=== PATIENT | male | born 1955 | race Caucasian/White ===

== ENCOUNTER 2017-07-25 17:04 | Emergency (ER) | payer SELFPAY | END 2017-07-25 18:30 | disposition home or self-care (01) | LOC: E/R 18:30 | DX: J20.9 Acute bronchitis, unspecified (principal); R11.10 Vomiting, unspecified; R19.7 Diarrhea, unspecified | CPT/HCPCS: 99282 ==

== ENCOUNTER 2018-01-20 14:29 | Inpatient (IN) | payer OTHER ==
[2018-01-20 15:34] LABS: ADD MAN DIFF? NO
[2018-01-20 15:40] LABS: BASOPHILS % 0.5 % (0.0-2.0); EOSINOPHILS # 0.1 10^3/ul (0.0-0.5); HEMATOCRIT 42.4 % (42.0-52.0); HEMOGLOBIN 14.3 g/dl (14.0-18.0); LYMPHOCYTES # 1.2 10^3/ul (0.8-2.9); MEAN CORPUSCULAR HEMOGLOBIN 29.4 pg (29.0-33.0); MEAN CORPUSCULAR HGB CONC 33.7 g/dl (32.0-37.0); MEAN CORPUSCULAR VOLUME 87.1 fl (82.0-101.0); MONOCYTE # 0.7 10^3/ul (0.3-0.9); MONOCYTES % 11.1 % (0.0-11.0); NEUTROPHIL # 4.1 10^3/ul (1.6-7.5); NEUTROPHILS % 68.1 % (39.0-77.0); PLATELET COUNT 144 10^3/UL (140-415); RED BLOOD COUNT 4.87 10^6/ul (4.70-6.10); RED CELL DISTRIBUTION WIDTH 12.4 % (11.5-14.5)
[2018-01-20] MEDS: SODIUM CHLORIDE 0.9% 1L BAG IV* (15:46)
[2018-01-20 15:52] LABS: UR MUCUS FEW /HPF (NONE SEEN); UR RBC 2 /HPF (0-5); UR WBC 2 /HPF (0-5)
[2018-01-20 15:56] LABS: ADD UMIC YES; UR ASCORBIC ACID 40 mg/dL (NEGATIVE); UR BILIRUBIN (Dip) NEGATIVE (NEGATIVE); UR BLOOD (Dip) NEGATIVE (NEGATIVE); UR CLARITY CLEAR (CLEAR); UR COLOR YELLOW (YELLOW); UR GLUCOSE (Dip) 3+ mg/dL (NEGATIVE); UR KETONES (Dip) NEGATIVE (NEGATIVE); UR LEUKOCYTE ESTERASE (Dip) NEGATIVE Leu/ul (NEGATIVE); UR NITRITE (Dip) NEGATIVE (NEGATIVE); UR SPECIFIC GRAVITY (Dip) 1.026 (1.003-1.030); UR TOTAL PROTEIN (Dip) 1+ mg/dl (NEGATIVE); UR UROBILINOGEN (Dip) 2+ mg/dL (NEGATIVE)
[2018-01-20 16:01] LABS: ALANINE AMINOTRANSFERASE 23 IU/L (13-69); ALBUMIN 4.1 g/dl (3.3-4.9); ALKALINE PHOSPHATASE 91 IU/L (42-121); ANION GAP 16 (8-16); ASPARTATE AMINO TRANSFERASE 24 IU/L (15-46); BILIRUBIN,INDIRECT 0.6 mg/dl (0-1.1); BILIRUBIN,TOTAL 0.6 mg/dl (0.2-1.3); BLOOD UREA NITROGEN 14 mg/dl (7-20); C-REACTIVE PROTEIN 3.5 mg/dl (0.0-0.9); CALCIUM 9.1 mg/dl (8.4-10.2); CARBON DIOXIDE 26 mmol/L (21-31); CHLORIDE 103 mmol/L (97-110); CREATININE 0.61 mg/dl (0.61-1.24); GLUCOSE 256 mg/dl (70-220); POTASSIUM 4.1 mmol/L (3.5-5.1); SODIUM 141 mmol/L (135-144); TOTAL PROTEIN 7.8 g/dl (6.1-8.1)
[2018-01-20 16:02] LABS: INR 1.05; PARTIAL THROMBOPLASTIN TIME 33.4 Sec (25.0-35.0); PROTIME 13.8 Sec (11.9-14.9); PT RATIO 1.1
[2018-01-20 16:07] LABS: LACTIC ACID 2.3 mmol/L (0.5-2.0)
[2018-01-20 16:12] LABS: TROPONIN-I < 0.012 ng/ml (0.000-0.120)
[2018-01-20 17:34] LABS: LACTIC ACID 1.2 mmol/L (0.5-2.0)
[2018-01-20 17:39] LABS: ERYTHROCYTE SEDIMENTATION RATE 20 mm/Hr (0-20)
[2018-01-20] MEDS: CEFEPIME 1GM/50 ML (PMX) 50 ML IVPB (17:54)
[2018-01-20] MEDS: VANCOMYCIN 1 GM (PMX) 250 ML IVPB (18:23)
[2018-01-20] MEDS ORDERED: ACETAMINOPHEN 325 MG TAB PO (18:30)
[2018-01-20] MEDS ORDERED: ONDANSETRON 4 MG INJ IV (18:30)
[2018-01-20] MEDS ORDERED: DEXTROSE 50% 50 ML SYRINGE IV ×2 (19:00)
[2018-01-20] MEDS ORDERED: GLUCAGON 1 MG INJ IM (19:00)
[2018-01-20] MEDS ORDERED: GLUCOSE GEL 15 GRAM TUBE PO ×2 (19:00)
[2018-01-20] MEDS ORDERED: NACL 0.9% 3 ML SYG IV (19:00)
[2018-01-20] MEDS ORDERED: GLUCOSE GEL 15 GRAM TUBE BUCCAL (19:00)
[2018-01-20 20:37] LABS: LACTIC ACID 0.9 mmol/L (0.5-2.0)
[2018-01-20] MEDS: TAMSULOSIN (SR) 0.4 MG CAP PO (21:55)
[2018-01-20] MEDS: LISINOPRIL 5 MG TAB PO (21:55)
[2018-01-20] MEDS: INSULIN GLARGINE [LANtus] 3 ML PEN SC (22:08)
[2018-01-20] MEDS: INSULIN ASPART [NOVOLOG] 3 ML PEN SC (22:09)
[2018-01-21] MEDS ORDERED: PIPER-TAZO 3.375 GM IV (PMX) 100 ML IVPB (02:00)
[2018-01-21 04:59] LABS: ADD MAN DIFF? NO
[2018-01-21 05:02] LABS: WHITE BLOOD COUNT 5.5 10^3/ul (4.8-10.8)
[2018-01-21 05:02] LABS: BASOPHILS % 0.2 % (0.0-2.0); EOSINOPHILS # 0.1 10^3/ul (0.0-0.5); HEMATOCRIT 36.7 % (42.0-52.0); HEMOGLOBIN 12.3 g/dl (14.0-18.0); LYMPHOCYTES # 1.4 10^3/ul (0.8-2.9); LYMPHOCYTES % 25.9 % (15.0-51.0); MEAN CORPUSCULAR HEMOGLOBIN 29.1 pg (29.0-33.0); MEAN CORPUSCULAR HGB CONC 33.5 g/dl (32.0-37.0); MEAN CORPUSCULAR VOLUME 86.8 fl (82.0-101.0); MONOCYTE # 0.8 10^3/ul (0.3-0.9); MONOCYTES % 13.7 % (0.0-11.0); NEUTROPHIL # 3.2 10^3/ul (1.6-7.5); NEUTROPHILS % 57.8 % (39.0-77.0); PLATELET COUNT 133 10^3/UL (140-415); RED BLOOD COUNT 4.23 10^6/ul (4.70-6.10); RED CELL DISTRIBUTION WIDTH 12.6 % (11.5-14.5)
[2018-01-21 05:34] LABS: ALANINE AMINOTRANSFERASE 27 IU/L (13-69); ALBUMIN 3.3 g/dl (3.3-4.9); ALBUMIN/GLOBULIN RATIO 1.03; ALKALINE PHOSPHATASE 72 IU/L (42-121); ANION GAP 13 (8-16); ASPARTATE AMINO TRANSFERASE 21 IU/L (15-46); BILIRUBIN,INDIRECT 0.5 mg/dl (0-1.1); BILIRUBIN,TOTAL 0.5 mg/dl (0.2-1.3); BLOOD UREA NITROGEN 12 mg/dl (7-20); CALCIUM 8.3 mg/dl (8.4-10.2); CARBON DIOXIDE 23 mmol/L (21-31); CHLORIDE 109 mmol/L (97-110); CREATININE 0.55 mg/dl (0.61-1.24); GLUCOSE 186 mg/dl (70-220); POTASSIUM 3.6 mmol/L (3.5-5.1); SODIUM 141 mmol/L (135-144); TOTAL PROTEIN 6.5 g/dl (6.1-8.1)
[2018-01-21 05:57] LABS: HEMOGLOBIN A1C 8.9 % (0-5.9)
[2018-01-21] MEDS: CEFEPIME 1GM/50 ML (PMX) 50 ML IVPB ×2 (08:02→20:49)
[2018-01-21] MEDS: INSULIN ASPART [NOVOLOG] 3 ML PEN SC ×7 (08:03→21:00)
[2018-01-21] MEDS: ENOXAPARIN 30 MG/0.3 ML SYG SC (08:04)
[2018-01-21] MEDS: LISINOPRIL 5 MG TAB PO (08:05)
[2018-01-21] MEDS: metFORMIN 500 MG TAB PO ×2 (11:58→17:11)
[2018-01-21] MEDS: HYDROCODONE/APAP (5/325) TAB PO (20:06)
[2018-01-21] MEDS: INSULIN GLARGINE [LANtus] 3 ML PEN SC (20:48)
[2018-01-21] MEDS: TAMSULOSIN (SR) 0.4 MG CAP PO (20:49)
[2018-01-21] MEDS: ATORVASTATIN 40 MG TAB PO (20:53)
[2018-01-22] MEDS: ACCU-CHEK XX (02:00)
[2018-01-22] MEDS: INSULIN ASPART [NOVOLOG] 3 ML PEN SC ×7 (08:00→21:00)
[2018-01-22] MEDS: metFORMIN 500 MG TAB PO ×2 (08:09→17:14)
[2018-01-22] MEDS: ENOXAPARIN 30 MG/0.3 ML SYG SC (08:10)
[2018-01-22] MEDS: CEFEPIME 1GM/50 ML (PMX) 50 ML IVPB ×2 (08:11→21:24)
[2018-01-22] MEDS: MUPIROCIN 2% 22 GM OINT TOP ×2 (08:11→21:25)
[2018-01-22] MEDS: LISINOPRIL 5 MG TAB PO (08:12)
[2018-01-22] MEDS: SODIUM HYPOCHLORITE (1/40) 1 APPLIC BTL IRR ×2 (08:17→21:25)
[2018-01-22] MEDS ORDERED: MUPIROCIN 2% 22 GM OINT TOP (09:00)
[2018-01-22] MEDS ORDERED: SODIUM HYPOCHLORITE (1/40) 1 APPLIC BTL IRR (09:00)
[2018-01-22] MEDS: INSULIN GLARGINE [LANtus] 3 ML PEN SC (21:23)
[2018-01-22] MEDS: TAMSULOSIN (SR) 0.4 MG CAP PO (21:24)
[2018-01-22] MEDS: ATORVASTATIN 40 MG TAB PO (21:24)
[2018-01-23] MEDS: ACCU-CHEK XX (02:00)
[2018-01-23] MEDS: INSULIN ASPART [NOVOLOG] 3 ML PEN SC ×7 (08:00→21:00)
[2018-01-23] MEDS: ENOXAPARIN 30 MG/0.3 ML SYG SC (08:00)
[2018-01-23] MEDS: metFORMIN 500 MG TAB PO ×2 (08:01→17:03)
[2018-01-23] MEDS: LISINOPRIL 5 MG TAB PO (08:02)
[2018-01-23] MEDS: CEFEPIME 1GM/50 ML (PMX) 50 ML IVPB (08:02)
[2018-01-23] MEDS: MUPIROCIN 2% 22 GM OINT TOP ×2 (08:09→20:58)
[2018-01-23] MEDS: SODIUM HYPOCHLORITE (1/40) 1 APPLIC BTL IRR ×2 (08:09→20:59)
[2018-01-23] MEDS: MEROPENEM 500MG/50 ML (PMX) 50 ML IVPB ×2 (17:02→22:40)
[2018-01-23] MEDS: INSULIN GLARGINE [LANtus] 3 ML PEN SC (20:14)
[2018-01-23] MEDS: ATORVASTATIN 40 MG TAB PO (20:58)
[2018-01-23] MEDS: TAMSULOSIN (SR) 0.4 MG CAP PO (20:58)
[2018-01-24] MEDS: ACCU-CHEK XX (02:00)
[2018-01-24] MEDS: MEROPENEM 500MG/50 ML (PMX) 50 ML IVPB (05:34)
[2018-01-24 06:29] LABS: ADD MAN DIFF? NO
[2018-01-24 06:39] LABS: BASOPHILS % 0.3 % (0.0-2.0); EOSINOPHILS # 0.2 10^3/ul (0.0-0.5); EOSINOPHILS % 3.2 % (0.0-7.0); HEMATOCRIT 40.8 % (42.0-52.0); HEMOGLOBIN 13.6 g/dl (14.0-18.0); LYMPHOCYTES % 27.3 % (15.0-51.0); MEAN CORPUSCULAR HEMOGLOBIN 29.1 pg (29.0-33.0); MEAN CORPUSCULAR HGB CONC 33.3 g/dl (32.0-37.0); MEAN CORPUSCULAR VOLUME 87.4 fl (82.0-101.0); MEAN PLATELET VOLUME 12.1 fl (7.4-10.4); MONOCYTE # 0.6 10^3/ul (0.3-0.9); MONOCYTES % 8.4 % (0.0-11.0); NEUTROPHIL # 4.4 10^3/ul (1.6-7.5); NEUTROPHILS % 60.5 % (39.0-77.0); PLATELET COUNT 182 10^3/UL (140-415); RED BLOOD COUNT 4.67 10^6/ul (4.70-6.10); RED CELL DISTRIBUTION WIDTH 12.6 % (11.5-14.5)
[2018-01-24 06:39] LABS: WHITE BLOOD COUNT 7.3 10^3/ul (4.8-10.8)
[2018-01-24 07:11] LABS: ANION GAP 16 (8-16); BLOOD UREA NITROGEN 13 mg/dl (7-20); CALCIUM 9.3 mg/dl (8.4-10.2); CARBON DIOXIDE 28 mmol/L (21-31); CHLORIDE 102 mmol/L (97-110); CREATININE 0.62 mg/dl (0.61-1.24); GLUCOSE 99 mg/dl (70-220); MAGNESIUM 1.8 mg/dl (1.7-2.5); PHOSPHORUS 4.1 mg/dl (2.5-4.9); POTASSIUM 4.4 mmol/L (3.5-5.1); SODIUM 142 mmol/L (135-144)
[2018-01-24] MEDS: INSULIN ASPART [NOVOLOG] 3 ML PEN SC ×4 (08:00→12:00)
[2018-01-24] MEDS: glipiZIDE 5 MG TAB PO (08:25)
[2018-01-24] MEDS: metFORMIN 500 MG TAB PO (08:26)
[2018-01-24] MEDS: LISINOPRIL 5 MG TAB PO (08:28)
[2018-01-24] MEDS: ENOXAPARIN 30 MG/0.3 ML SYG SC (08:29)
[2018-01-24] MEDS: MUPIROCIN 2% 22 GM OINT TOP (08:33)
[2018-01-24] MEDS: SODIUM HYPOCHLORITE (1/40) 1 APPLIC BTL IRR (08:33)
[2018-01-24] MEDS ORDERED: METOCLOPRAMIDE 5 MG TAB PO (09:30)
== END 2018-01-24 13:51 | disposition home or self-care (01) | DRG 638 ==
LOC: E/R 14:29 → PP2 21:14
PROC: 0HBMXZZ Excision of Right Foot Skin, External Approach (ICD-10-PCS; principal; 2018-01-21)
PROC: 0S9N3ZZ Drainage of Left Metatarsal-Phalangeal Joint, Percutaneous Approach (ICD-10-PCS; 2018-01-21)
DX: E11.621 Type 2 diabetes mellitus with foot ulcer (principal); L02.611 Cutaneous abscess of right foot; L97.512 Non-pressure chronic ulcer of other part of right foot with fat layer exposed; I10 Essential (primary) hypertension; N40.1 Benign prostatic hyperplasia with lower urinary tract symptoms; R39.11 Hesitancy of micturition; R39.16 Straining to void; K58.9 Irritable bowel syndrome, unspecified; Z88.0 Allergy status to penicillin
CPT/HCPCS: 36415; 71045; 73630; 73718; 80048; 80053; 81001; 82962; 83036; 83605; 83735; 84100; 84484; 85025; 85610; 85651; 85730; 86140; 87040; 87045; 87070; 87086; 93005; 93922; 96365; 96366; 96375; 97161; 99285-25

== ENCOUNTER 2018-01-29 06:32 | Inpatient (IN) | payer OTHER ==
[2018-01-29] MEDS: SOD CHLORIDE 0.9% 1,000 ML IV ×2 (07:24→14:41)
[2018-01-29] MEDS: HYDROmorphONE 1 MG/ML SYG IV ×2 (07:24→13:05)
[2018-01-29] MEDS: ONDANSETRON 4 MG INJ IV ×3 (07:24→20:25)
[2018-01-29 07:37] LABS: WHITE BLOOD COUNT 30.9 10^3/ul (4.8-10.8)
[2018-01-29 07:37] LABS: ABNORMAL IP MESSAGE 1; HEMATOCRIT 40.4 % (42.0-52.0); HEMOGLOBIN 14.3 g/dl (14.0-18.0); MEAN CORPUSCULAR HGB CONC 35.4 g/dl (32.0-37.0); MEAN CORPUSCULAR VOLUME 84.7 fl (82.0-101.0); MEAN PLATELET VOLUME 12.3 fl (7.4-10.4); PLATELET COUNT 217 10^3/UL (140-415); POSITIVE DIFF @See below; RED BLOOD COUNT 4.77 10^6/ul (4.70-6.10); RED CELL DISTRIBUTION WIDTH 12.2 % (11.5-14.5)
[2018-01-29 07:45] LABS: ADD MAN DIFF? YES
[2018-01-29 07:55] LABS: ALANINE AMINOTRANSFERASE 379 IU/L (13-69); ALBUMIN 3.7 g/dl (3.3-4.9); ALBUMIN/GLOBULIN RATIO 1.05; ALKALINE PHOSPHATASE 304 IU/L (42-121); ANION GAP 19 (8-16); ASPARTATE AMINO TRANSFERASE 726 IU/L (15-46); BILIRUBIN,INDIRECT 1.3 mg/dl (0-1.1); BILIRUBIN,TOTAL 3.1 mg/dl (0.2-1.3); BLOOD UREA NITROGEN 17 mg/dl (7-20); CALCIUM 8.7 mg/dl (8.4-10.2); CARBON DIOXIDE 21 mmol/L (21-31); CHLORIDE 93 mmol/L (97-110); CREATININE 0.61 mg/dl (0.61-1.24); GLUCOSE 348 mg/dl (70-220); LIPASE 174 U/L (23-300); POTASSIUM 4.2 mmol/L (3.5-5.1); SODIUM 129 mmol/L (135-144); TOTAL PROTEIN 7.2 g/dl (6.1-8.1)
[2018-01-29 08:28] LABS: ANISOCYTOSIS 1+ (0-0); BAND NEUTROPHILS #M 1.8 10^3/ul (0.0-0.6); BAND NEUTROPHILS % (M) 6 % (0-4); GIANT THROMBO% (M) 1 % (0-0); MONOCYTE #M 0.9 10^3/ul (0.3-0.9); MONOCYTES % (M) 3 % (0-11); PLATELET ESTIMATE NORMAL; PLATELET MORPHOLOGY COMMENT @See below; POIKILOCYTOSIS 3+ (0-0); SEG NEUT #M 28.7 10^3/ul (1.6-7.5); SEGMENTED NEUTROPHILS (M) % 91 % (39-77)
[2018-01-29] MEDS: IOHEXOL 300MG/ML 150 ML BTL (08:32)
[2018-01-29] MEDS: SOD CHLORIDE 0.9% 100 ML (08:32)
[2018-01-29 08:36] LABS: ADD UMIC YES; UR ASCORBIC ACID 40 mg/dL (NEGATIVE); UR BACTERIA FEW /HPF (NONE SEEN); UR BILIRUBIN (Dip) NEGATIVE (NEGATIVE); UR BLOOD (Dip) 1+ mg/dL (NEGATIVE); UR CLARITY CLEAR (CLEAR); UR COLOR AMBER (YELLOW); UR GLUCOSE (Dip) 3+ mg/dL (NEGATIVE); UR KETONES (Dip) 1+ mg/dL (NEGATIVE); UR LEUKOCYTE ESTERASE (Dip) NEGATIVE Leu/ul (NEGATIVE); UR NITRITE (Dip) NEGATIVE (NEGATIVE); UR RBC 1 /HPF (0-5); UR SPECIFIC GRAVITY (Dip) 1.033 (1.003-1.030); UR TOTAL PROTEIN (Dip) 1+ mg/dl (NEGATIVE); UR UROBILINOGEN (Dip) 1+ mg/dL (NEGATIVE); UR WBC 5 /HPF (0-5)
[2018-01-29] MEDS: metroNIDAZOLE 500 MG/NS (PMX) 100 ML IVPB ×3 (09:30→21:31)
[2018-01-29] MEDS: CEFTRIAXONE 1 GM/50 ML (PMX) 50 ML IVPB (10:06)
[2018-01-29] MEDS ORDERED: SOD CHLORIDE 0.9% 1,000 ML IV (10:19)
[2018-01-29] MEDS ORDERED: ACETAMINOPHEN 325 MG TAB PO (10:30)
[2018-01-29] MEDS ORDERED: ONDANSETRON 4 MG INJ IV (10:30)
[2018-01-29] MEDS ORDERED: hydrALAzine 20 MG INJ IV (13:00)
[2018-01-29] MEDS: CIPROFLOXACIN 400MG/D5W 200 ML IVPB ×2 (13:00→23:23)
[2018-01-29] MEDS ORDERED: NACL 0.9% 3 ML SYG IV (13:00)
[2018-01-29 13:26] LABS: CHOL/HDL RATIO 6.2 RATIO; HDL CHOLESTEROL 15 mg/dl (30-78); LDL CHOLESTEROL,CALCULATED 62 mg/dl; TRIGLYCERIDES 83 mg/dl (0-149)
[2018-01-29 13:26] LABS: CHOLESTEROL 94 mg/dl (100-200)
[2018-01-29 13:57] LABS: FREE T4 (FREE THYROXINE) 2.06 ng/dl (0.78-2.44); THYROID STIMULATING HORMONE 0.558 MIU/L (0.465-4.680)
[2018-01-29 13:58] LABS: HEMOGLOBIN A1C 8.5 % (0-5.9)
[2018-01-29] MEDS ORDERED: GLUCOSE GEL 15 GRAM TUBE BUCCAL (14:00)
[2018-01-29] MEDS ORDERED: DEXTROSE 50% 50 ML SYRINGE IV ×2 (14:00)
[2018-01-29] MEDS ORDERED: GLUCOSE GEL 15 GRAM TUBE PO ×2 (14:00)
[2018-01-29] MEDS ORDERED: GLUCAGON 1 MG INJ IM (14:00)
[2018-01-29 14:42] LABS: PROSTATE SPECIFIC ANTIGEN 16.1 ng/ml (0.0-4.0)
[2018-01-29] MEDS: HYDROmorphONE 0.5 MG/0.5 ML SYG IV ×2 (15:00→20:24)
[2018-01-29] MEDS: INSULIN ASPART [NOVOLOG] 3 ML PEN SC ×3 (15:55→21:37)
[2018-01-29 16:40] LABS: HAAIG REFLEX REFLEX FILED
[2018-01-29 17:51] LABS: HEPATITIS B CORE ANTIBODY REACTIVE (NEGATIVE); HEPATITIS C VIRAL ANTIBODY NEGATIVE (NEGATIVE)
[2018-01-29 20:03] LABS: HEPATITIS B SURFACE ANTIGEN POSITIVE (NEGATIVE)
[2018-01-29] MEDS: TAMSULOSIN (SR) 0.4 MG CAP PO (20:25)
[2018-01-29] MEDS: INSULIN GLARGINE [LANTus] (100 UNITS/ML) SYG SC (21:36)
[2018-01-30] MEDS: INSULIN ASPART [NOVOLOG] 3 ML PEN SC ×5 (02:00→20:46)
[2018-01-30] MEDS: HYDROmorphONE 0.5 MG/0.5 ML SYG IV ×2 (02:13→06:22)
[2018-01-30] MEDS: SOD CHLORIDE 0.9% 1,000 ML IV ×4 (02:13→22:22)
[2018-01-30 05:42] LABS: ADD MAN DIFF? NO
[2018-01-30 05:46] LABS: ABNORMAL IP MESSAGE 1; BASOPHIL # 0.1 10^3/ul (0.0-0.1); BASOPHILS % 0.2 % (0.0-2.0); HEMOGLOBIN 13.8 g/dl (14.0-18.0); LYMPHOCYTES # 0.5 10^3/ul (0.8-2.9); MEAN CORPUSCULAR HEMOGLOBIN 29.3 pg (29.0-33.0); MEAN CORPUSCULAR HGB CONC 34.5 g/dl (32.0-37.0); MEAN CORPUSCULAR VOLUME 84.9 fl (82.0-101.0); MEAN PLATELET VOLUME 12.1 fl (7.4-10.4); MONOCYTE # 1.4 10^3/ul (0.3-0.9); NEUTROPHIL # 24.8 10^3/ul (1.6-7.5); NEUTROPHILS % 91.4 % (39.0-77.0); PLATELET COUNT 250 10^3/UL (140-415); POSITIVE DIFF @See below; RED BLOOD COUNT 4.71 10^6/ul (4.70-6.10); RED CELL DISTRIBUTION WIDTH 12.5 % (11.5-14.5)
[2018-01-30 05:46] LABS: WHITE BLOOD COUNT 27.1 10^3/ul (4.8-10.8)
[2018-01-30] MEDS: metroNIDAZOLE 500 MG/NS (PMX) 100 ML IVPB ×3 (05:58→20:47)
[2018-01-30 06:03] LABS: INR 1.28; PROTIME 16.2 Sec (11.9-14.9); PT RATIO 1.3
[2018-01-30 06:04] LABS: PARTIAL THROMBOPLASTIN TIME 47.7 Sec (25.0-35.0)
[2018-01-30 06:12] LABS: ALANINE AMINOTRANSFERASE 236 IU/L (13-69); ALBUMIN 3.2 g/dl (3.3-4.9); ALBUMIN/GLOBULIN RATIO 1.03; ALKALINE PHOSPHATASE 278 IU/L (42-121); ANION GAP 14 (8-16); ASPARTATE AMINO TRANSFERASE 188 IU/L (15-46); BILIRUBIN,INDIRECT 0.8 mg/dl (0-1.1); BILIRUBIN,TOTAL 0.9 mg/dl (0.2-1.3); BLOOD UREA NITROGEN 20 mg/dl (7-20); CALCIUM 8.2 mg/dl (8.4-10.2); CARBON DIOXIDE 24 mmol/L (21-31); CHLORIDE 100 mmol/L (97-110); GLUCOSE 237 mg/dl (70-220); POTASSIUM 3.5 mmol/L (3.5-5.1); SODIUM 134 mmol/L (135-144); TOTAL PROTEIN 6.3 g/dl (6.1-8.1)
[2018-01-30] MEDS: ONDANSETRON 4 MG INJ IV (06:21)
[2018-01-30 06:27] LABS: FREE T4 (FREE THYROXINE) 1.75 ng/dl (0.78-2.44)
[2018-01-30 06:32] LABS: DIGOXIN < 0.4 ng/ml (1.0-2.0)
[2018-01-30 06:35] LABS: PHOSPHORUS 2.9 mg/dl (2.5-4.9)
[2018-01-30 06:35] LABS: MAGNESIUM 2.2 mg/dl (1.7-2.5)
[2018-01-30] MEDS ORDERED: CEFAZOLIN 1 GM INJ (07:00)
[2018-01-30] MEDS ORDERED: ONDANSETRON 4 MG INJ (07:00)
[2018-01-30] MEDS ORDERED: DEXAMETHASONE 4 MG/ML 1 ML INJ (07:00)
[2018-01-30] MEDS ORDERED: LIDOCAINE 2% (SDV) 5 ML INJ ×2 (07:45→07:53)
[2018-01-30] MEDS ORDERED: NEOSTIGMINE 3 MG/3 ML SYRINGE ×2 (07:46→07:53)
[2018-01-30] MEDS ORDERED: FENTAnyl 50 MCG/ML VIAL ×2 (07:46→07:53)
[2018-01-30] MEDS ORDERED: MIDAZOLAM 1 MG/ML 2 ML INJ ×2 (07:46→07:53)
[2018-01-30] MEDS ORDERED: PROPOFOL 20 ML ×2 (07:46→07:53)
[2018-01-30] MEDS ORDERED: ROCURONIUM 50 MG INJ ×2 (07:46→07:53)
[2018-01-30] MEDS ORDERED: GLYCOPYRROLATE 0.4 MG INJ ×2 (07:46→07:53)
[2018-01-30] MEDS: LISINOPRIL 5 MG TAB PO ×2 (09:00→13:47)
[2018-01-30] MEDS ORDERED: NALOXONE (0.4 MG/ML) INJ IV (09:00)
[2018-01-30] MEDS: BUPIVACAINE 0.25% (MPF) 30 ML INJ (09:23)
[2018-01-30] MEDS: LIDOCAINE 1%/EPI 30 ML INJ (09:23)
[2018-01-30] MEDS: CIPROFLOXACIN 400MG/D5W 200 ML IVPB ×2 (14:52→22:22)
[2018-01-30] MEDS: INSULIN GLARGINE [LANTus] (100 UNITS/ML) SYG SC (20:45)
[2018-01-30] MEDS: TAMSULOSIN (SR) 0.4 MG CAP PO (20:46)
[2018-01-30] MEDS: HYDROCODONE/APAP (5/325) TAB PO (22:23)
[2018-01-31] MEDS: INSULIN ASPART [NOVOLOG] 3 ML PEN SC ×7 (01:28→21:00)
[2018-01-31] MEDS: SOD CHLORIDE 0.9% 1,000 ML IV ×3 (05:37→22:24)
[2018-01-31] MEDS: metroNIDAZOLE 500 MG/NS (PMX) 100 ML IVPB ×3 (05:37→22:17)
[2018-01-31 06:13] LABS: ADD MAN DIFF? NO
[2018-01-31 06:24] LABS: ABNORMAL IP MESSAGE 1; BASOPHILS % 0.2 % (0.0-2.0); HEMATOCRIT 33.8 % (42.0-52.0); HEMOGLOBIN 11.5 g/dl (14.0-18.0); LYMPHOCYTES # 0.6 10^3/ul (0.8-2.9); LYMPHOCYTES % 2.5 % (15.0-51.0); MEAN CORPUSCULAR HEMOGLOBIN 29.3 pg (29.0-33.0); MEAN PLATELET VOLUME 12.6 fl (7.4-10.4); MONOCYTE # 1.2 10^3/ul (0.3-0.9); MONOCYTES % 5.2 % (0.0-11.0); NEUTROPHIL # 21.1 10^3/ul (1.6-7.5); NEUTROPHILS % 91.3 % (39.0-77.0); PLATELET COUNT 218 10^3/UL (140-415); POSITIVE DIFF @See below; RED BLOOD COUNT 3.93 10^6/ul (4.70-6.10); RED CELL DISTRIBUTION WIDTH 12.7 % (11.5-14.5)
[2018-01-31 06:24] LABS: WHITE BLOOD COUNT 23.1 10^3/ul (4.8-10.8)
[2018-01-31 06:53] LABS: ALANINE AMINOTRANSFERASE 126 IU/L (13-69); ALBUMIN 2.6 g/dl (3.3-4.9); ALBUMIN/GLOBULIN RATIO 0.89; ANION GAP 11 (8-16); ASPARTATE AMINO TRANSFERASE 72 IU/L (15-46); BILIRUBIN,INDIRECT 0.3 mg/dl (0-1.1); BILIRUBIN,TOTAL 0.3 mg/dl (0.2-1.3); CALCIUM 7.3 mg/dl (8.4-10.2); CARBON DIOXIDE 21 mmol/L (21-31); CHLORIDE 102 mmol/L (97-110); CREATININE 0.68 mg/dl (0.61-1.24); GLUCOSE 282 mg/dl (70-220); POTASSIUM 3.4 mmol/L (3.5-5.1); SODIUM 131 mmol/L (135-144); TOTAL PROTEIN 5.5 g/dl (6.1-8.1)
[2018-01-31 06:57] LABS: MAGNESIUM 2.3 mg/dl (1.7-2.5)
[2018-01-31 08:15] LABS: ALKALINE PHOSPHATASE 215 IU/L (42-121); BLOOD UREA NITROGEN 30 mg/dl (7-20)
[2018-01-31] MEDS: CIPROFLOXACIN 400MG/D5W 200 ML IVPB ×2 (08:33→21:11)
[2018-01-31] MEDS: POTASSIUM CHLORIDE (SR) 20 MEQ TAB PO (08:38)
[2018-01-31] MEDS: ONDANSETRON 4 MG INJ IV ×2 (09:46→16:36)
[2018-01-31] MEDS: TAMSULOSIN (SR) 0.4 MG CAP PO (21:11)
[2018-01-31] MEDS: INSULIN GLARGINE [LANTus] (100 UNITS/ML) SYG SC (23:00)
[2018-02-01] MEDS: SOD CHLORIDE 0.9% 1,000 ML IV ×3 (03:34→22:24)
[2018-02-01 05:11] LABS: ADD MAN DIFF? NO
[2018-02-01 05:16] LABS: WHITE BLOOD COUNT 12.4 10^3/ul (4.8-10.8)
[2018-02-01 05:16] LABS: BASOPHILS % 0.1 % (0.0-2.0); EOSINOPHILS # 0.1 10^3/ul (0.0-0.5); EOSINOPHILS % 0.4 % (0.0-7.0); HEMATOCRIT 32.2 % (42.0-52.0); HEMOGLOBIN 10.9 g/dl (14.0-18.0); LYMPHOCYTES # 1.4 10^3/ul (0.8-2.9); LYMPHOCYTES % 11.1 % (15.0-51.0); MEAN CORPUSCULAR HEMOGLOBIN 29.5 pg (29.0-33.0); MEAN CORPUSCULAR HGB CONC 33.9 g/dl (32.0-37.0); MONOCYTE # 0.9 10^3/ul (0.3-0.9); NEUTROPHILS % 80.4 % (39.0-77.0); PLATELET COUNT 223 10^3/UL (140-415); RED CELL DISTRIBUTION WIDTH 13.2 % (11.5-14.5)
[2018-02-01] MEDS: metroNIDAZOLE 500 MG/NS (PMX) 100 ML IVPB ×3 (05:17→22:35)
[2018-02-01] MEDS: ONDANSETRON 4 MG INJ IV (05:22)
[2018-02-01 05:34] LABS: PHOSPHORUS 2.3 mg/dl (2.5-4.9)
[2018-02-01 05:34] LABS: MAGNESIUM 2.2 mg/dl (1.7-2.5)
[2018-02-01 05:36] LABS: ALANINE AMINOTRANSFERASE 87 IU/L (13-69); ALBUMIN 2.3 g/dl (3.3-4.9); ALBUMIN/GLOBULIN RATIO 0.82; ALKALINE PHOSPHATASE 131 IU/L (42-121); ANION GAP 5 (8-16); ASPARTATE AMINO TRANSFERASE 60 IU/L (15-46); BILIRUBIN,INDIRECT 0.2 mg/dl (0-1.1); BILIRUBIN,TOTAL 0.2 mg/dl (0.2-1.3); BLOOD UREA NITROGEN 16 mg/dl (7-20); CALCIUM 7.3 mg/dl (8.4-10.2); CARBON DIOXIDE 25 mmol/L (21-31); CHLORIDE 110 mmol/L (97-110); CREATININE 0.59 mg/dl (0.61-1.24); GLUCOSE 108 mg/dl (70-220); POTASSIUM 3.2 mmol/L (3.5-5.1); SODIUM 137 mmol/L (135-144); TOTAL PROTEIN 5.1 g/dl (6.1-8.1)
[2018-02-01] MEDS: INSULIN ASPART [NOVOLOG] 3 ML PEN SC ×7 (08:29→20:18)
[2018-02-01] MEDS: POTASSIUM CHLORIDE (SR) 20 MEQ TAB PO (09:57)
[2018-02-01] MEDS: LISINOPRIL 5 MG TAB PO (09:57)
[2018-02-01] MEDS: CIPROFLOXACIN 400MG/D5W 200 ML IVPB ×2 (10:02→20:13)
[2018-02-01] MEDS: METOCLOPRAMIDE 10 MG INJ IV ×2 (11:54→18:57)
[2018-02-01 19:43] LABS: ADD UMIC YES; UR ASCORBIC ACID NEGATIVE (NEGATIVE); UR BILIRUBIN (Dip) NEGATIVE (NEGATIVE); UR BLOOD (Dip) 1+ mg/dL (NEGATIVE); UR CLARITY SLIGHTLY CLOUDY (CLEAR); UR COLOR YELLOW (YELLOW); UR GLUCOSE (Dip) 1+ mg/dL (NEGATIVE); UR KETONES (Dip) NEGATIVE (NEGATIVE); UR LEUKOCYTE ESTERASE (Dip) 2+ Leu/ul (NEGATIVE); UR NITRITE (Dip) NEGATIVE (NEGATIVE); UR RBC 3 /HPF (0-5); UR SPECIFIC GRAVITY (Dip) 1.011 (1.003-1.030); UR TOTAL PROTEIN (Dip) NEGATIVE (NEGATIVE); UR UROBILINOGEN (Dip) NEGATIVE (NEGATIVE); UR WBC 7 /HPF (0-5)
[2018-02-01] MEDS: PHENAZOPYRIDINE 100 MG TAB PO (20:13)
[2018-02-01] MEDS: TAMSULOSIN (SR) 0.4 MG CAP PO ×2 (20:14)
[2018-02-01] MEDS: INSULIN GLARGINE [LANTus] (100 UNITS/ML) SYG SC (20:16)
[2018-02-02] MEDS: METOCLOPRAMIDE 10 MG INJ IV ×4 (00:14→18:29)
[2018-02-02] MEDS: SOD CHLORIDE 0.9% 1,000 ML IV (04:05)
[2018-02-02] MEDS: metroNIDAZOLE 500 MG/NS (PMX) 100 ML IVPB ×3 (05:29→22:47)
[2018-02-02 05:40] LABS: ADD MAN DIFF? NO
[2018-02-02 05:41] LABS: WHITE BLOOD COUNT 9.4 10^3/ul (4.8-10.8)
[2018-02-02 05:41] LABS: BASOPHILS % 0.2 % (0.0-2.0); EOSINOPHILS # 0.2 10^3/ul (0.0-0.5); EOSINOPHILS % 2.2 % (0.0-7.0); HEMATOCRIT 38.4 % (42.0-52.0); HEMOGLOBIN 12.6 g/dl (14.0-18.0); LYMPHOCYTES # 1.2 10^3/ul (0.8-2.9); MEAN CORPUSCULAR HEMOGLOBIN 28.9 pg (29.0-33.0); MEAN CORPUSCULAR HGB CONC 32.8 g/dl (32.0-37.0); MEAN CORPUSCULAR VOLUME 88.1 fl (82.0-101.0); MEAN PLATELET VOLUME 11.3 fl (7.4-10.4); MONOCYTE # 0.9 10^3/ul (0.3-0.9); MONOCYTES % 9.7 % (0.0-11.0); NEUTROPHIL # 6.9 10^3/ul (1.6-7.5); NEUTROPHILS % 73.5 % (39.0-77.0); PLATELET COUNT 285 10^3/UL (140-415); RED BLOOD COUNT 4.36 10^6/ul (4.70-6.10); RED CELL DISTRIBUTION WIDTH 13.2 % (11.5-14.5)
[2018-02-02 06:29] LABS: ALANINE AMINOTRANSFERASE 89 IU/L (13-69); ALBUMIN 2.7 g/dl (3.3-4.9); ALKALINE PHOSPHATASE 148 IU/L (42-121); ANION GAP 13 (8-16); ASPARTATE AMINO TRANSFERASE 76 IU/L (15-46); BILIRUBIN,INDIRECT 0.7 mg/dl (0-1.1); BILIRUBIN,TOTAL 0.7 mg/dl (0.2-1.3); BLOOD UREA NITROGEN 9 mg/dl (7-20); CALCIUM 7.5 mg/dl (8.4-10.2); CARBON DIOXIDE 22 mmol/L (21-31); CHLORIDE 108 mmol/L (97-110); CREATININE 0.52 mg/dl (0.61-1.24); GLUCOSE 115 mg/dl (70-220); POTASSIUM 3.3 mmol/L (3.5-5.1); SODIUM 140 mmol/L (135-144); TOTAL PROTEIN 5.7 g/dl (6.1-8.1)
[2018-02-02] MEDS: INSULIN ASPART [NOVOLOG] 3 ML PEN SC ×7 (07:20→21:00)
[2018-02-02] MEDS: PHENAZOPYRIDINE 100 MG TAB PO ×2 (08:44→12:55)
[2018-02-02] MEDS: TAMSULOSIN (SR) 0.4 MG CAP PO ×2 (08:45→21:41)
[2018-02-02] MEDS: LISINOPRIL 5 MG TAB PO (08:47)
[2018-02-02] MEDS: CIPROFLOXACIN 400MG/D5W 200 ML IVPB ×2 (08:59→21:34)
[2018-02-02] MEDS ORDERED: POTASSIUM CHLORIDE (SR) 10 MEQ TAB PO (09:30)
[2018-02-02] MEDS: POTASSIUM CHLORIDE (SR) 20 MEQ TAB PO (10:57)
[2018-02-02 12:17] LABS: HEPATITIS B SURFACE ANTIGEN NON-REACTIVE (NON-REACTIVE)
[2018-02-02] MEDS: HYDROCODONE/APAP (5/325) TAB PO (21:32)
[2018-02-02] MEDS: FAMOTIDINE 20 MG INJ IV (21:34)
[2018-02-02] MEDS: INSULIN GLARGINE [LANTus] (100 UNITS/ML) SYG SC (21:47)
[2018-02-02] MEDS: DOXAZOSIN 2 MG TAB PO (21:54)
[2018-02-03] MEDS: METOCLOPRAMIDE 10 MG INJ IV ×3 (00:02→12:36)
[2018-02-03 05:26] LABS: WHITE BLOOD COUNT 9.4 10^3/ul (4.8-10.8)
[2018-02-03 05:26] LABS: ADD MAN DIFF? NO; BASOPHIL # 0.1 10^3/ul (0.0-0.1); BASOPHILS % 0.5 % (0.0-2.0); EOSINOPHILS # 0.4 10^3/ul (0.0-0.5); EOSINOPHILS % 3.8 % (0.0-7.0); HEMOGLOBIN 12.1 g/dl (14.0-18.0); LYMPHOCYTES # 1.7 10^3/ul (0.8-2.9); LYMPHOCYTES % 18.2 % (15.0-51.0); MEAN CORPUSCULAR HEMOGLOBIN 29.2 pg (29.0-33.0); MEAN CORPUSCULAR HGB CONC 32.7 g/dl (32.0-37.0); MEAN CORPUSCULAR VOLUME 89.2 fl (82.0-101.0); MONOCYTE # 0.9 10^3/ul (0.3-0.9); NEUTROPHIL # 6.1 10^3/ul (1.6-7.5); NEUTROPHILS % 65.4 % (39.0-77.0); PLATELET COUNT 284 10^3/UL (140-415); RED BLOOD COUNT 4.15 10^6/ul (4.70-6.10); RED CELL DISTRIBUTION WIDTH 13.2 % (11.5-14.5)
[2018-02-03] MEDS: metroNIDAZOLE 500 MG/NS (PMX) 100 ML IVPB ×3 (05:29→22:02)
[2018-02-03 05:41] LABS: PHOSPHORUS 3.5 mg/dl (2.5-4.9)
[2018-02-03 06:01] LABS: ALANINE AMINOTRANSFERASE 72 IU/L (13-69); ALBUMIN 2.4 g/dl (3.3-4.9); ALBUMIN/GLOBULIN RATIO 0.85; ALKALINE PHOSPHATASE 118 IU/L (42-121); ANION GAP 10 (8-16); ASPARTATE AMINO TRANSFERASE 46 IU/L (15-46); BILIRUBIN,INDIRECT 0.6 mg/dl (0-1.1); BILIRUBIN,TOTAL 0.6 mg/dl (0.2-1.3); BLOOD UREA NITROGEN 6 mg/dl (7-20); CALCIUM 7.6 mg/dl (8.4-10.2); CARBON DIOXIDE 26 mmol/L (21-31); CHLORIDE 106 mmol/L (97-110); CREATININE 0.49 mg/dl (0.61-1.24); GLUCOSE 143 mg/dl (70-220); MAGNESIUM 1.9 mg/dl (1.7-2.5); POTASSIUM 3.6 mmol/L (3.5-5.1); SODIUM 138 mmol/L (135-144); TOTAL PROTEIN 5.2 g/dl (6.1-8.1)
[2018-02-03] MEDS: INSULIN ASPART [NOVOLOG] 3 ML PEN SC ×7 (08:40→21:00)
[2018-02-03] MEDS: FAMOTIDINE 20 MG INJ IV ×2 (08:44→20:35)
[2018-02-03] MEDS: TAMSULOSIN (SR) 0.4 MG CAP PO ×2 (08:44→20:33)
[2018-02-03] MEDS: LISINOPRIL 5 MG TAB PO (08:44)
[2018-02-03] MEDS: CIPROFLOXACIN 400MG/D5W 200 ML IVPB ×2 (08:45→20:32)
[2018-02-03] MEDS: FLUCONAZOLE 200 MG TAB PO (14:02)
[2018-02-03 16:54] LABS: AADO2 Arterial 46.5 mmHg (7.0-24.0); Allen Test ACCEPTAB; Arterial Base Excess 3.2 mmol/L (-3.0-3); Arterial Blood Gas Oxygen Sat 93.5 mmHG (95.0-98.0); Arterial COHb 0.7 % (0.0-3.0); Arterial Fraction of Oxyhgb 92.7 % (93.0-99.0); Arterial HCO3 26.2 mmol/L (22.0-26.0); Arterial MetHb 0.2 % (0.0-1.5); Arterial Total Hemglobin 14.7 g/dl (12.0-18.0); Arterial pCO2 34.9 mmhg (35-45); MODE ROOM AIR; Site Right Radial
[2018-02-03] MEDS: DOXAZOSIN 2 MG TAB PO (20:33)
[2018-02-03] MEDS: INSULIN GLARGINE [LANTus] (100 UNITS/ML) SYG SC (21:41)
[2018-02-04 05:54] LABS: ADD MAN DIFF? NO
[2018-02-04] MEDS: metroNIDAZOLE 500 MG/NS (PMX) 100 ML IVPB ×2 (05:55→14:00)
[2018-02-04 05:56] LABS: BASOPHILS % 0.4 % (0.0-2.0); EOSINOPHILS # 0.3 10^3/ul (0.0-0.5); EOSINOPHILS % 3.2 % (0.0-7.0); HEMATOCRIT 36.8 % (42.0-52.0); HEMOGLOBIN 12.1 g/dl (14.0-18.0); LYMPHOCYTES # 1.7 10^3/ul (0.8-2.9); LYMPHOCYTES % 16.3 % (15.0-51.0); MEAN CORPUSCULAR HEMOGLOBIN 29.6 pg (29.0-33.0); MEAN CORPUSCULAR HGB CONC 32.9 g/dl (32.0-37.0); MEAN PLATELET VOLUME 11.2 fl (7.4-10.4); MONOCYTES % 9.7 % (0.0-11.0); NEUTROPHILS % 68.2 % (39.0-77.0); PLATELET COUNT 274 10^3/UL (140-415); RED BLOOD COUNT 4.09 10^6/ul (4.70-6.10); RED CELL DISTRIBUTION WIDTH 13.2 % (11.5-14.5)
[2018-02-04 05:56] LABS: WHITE BLOOD COUNT 10.3 10^3/ul (4.8-10.8)
[2018-02-04 06:38] LABS: ALANINE AMINOTRANSFERASE 63 IU/L (13-69); ALBUMIN 2.4 g/dl (3.3-4.9); ALBUMIN/GLOBULIN RATIO 0.82; ALKALINE PHOSPHATASE 121 IU/L (42-121); ANION GAP 12 (8-16); ASPARTATE AMINO TRANSFERASE 41 IU/L (15-46); BILIRUBIN,INDIRECT 0.5 mg/dl (0-1.1); BILIRUBIN,TOTAL 0.5 mg/dl (0.2-1.3); BLOOD UREA NITROGEN 9 mg/dl (7-20); CALCIUM 7.9 mg/dl (8.4-10.2); CARBON DIOXIDE 26 mmol/L (21-31); CHLORIDE 106 mmol/L (97-110); CREATININE 0.54 mg/dl (0.61-1.24); GLUCOSE 186 mg/dl (70-220); POTASSIUM 3.9 mmol/L (3.5-5.1); SODIUM 140 mmol/L (135-144); TOTAL PROTEIN 5.3 g/dl (6.1-8.1)
[2018-02-04 07:00] LABS: MAGNESIUM 1.8 mg/dl (1.7-2.5)
[2018-02-04] MEDS: INSULIN ASPART [NOVOLOG] 3 ML PEN SC ×4 (08:30→12:58)
[2018-02-04] MEDS: FAMOTIDINE 20 MG INJ IV (08:38)
[2018-02-04] MEDS: ONDANSETRON 4 MG INJ IV (08:38)
[2018-02-04] MEDS: CIPROFLOXACIN 400MG/D5W 200 ML IVPB (08:39)
[2018-02-04] MEDS: TAMSULOSIN (SR) 0.4 MG CAP PO (08:40)
[2018-02-04] MEDS: FLUCONAZOLE 200 MG TAB PO (08:40)
[2018-02-04] MEDS: LISINOPRIL 5 MG TAB PO (08:40)
== END 2018-02-04 14:10 | disposition home or self-care (01) | DRG 853 ==
LOC: MS1 01-31 09:29 → E/R 06:32 → MS1 01-30 19:58
PROC: 0FT44ZZ Resection of Gallbladder, Percutaneous Endoscopic Approach (ICD-10-PCS; principal; 2018-01-30 08:46)
PROC: 0DNL4ZZ Release Transverse Colon, Percutaneous Endoscopic Approach (ICD-10-PCS; 2018-01-30 08:46)
PROC: 0DN84ZZ Release Small Intestine, Percutaneous Endoscopic Approach (ICD-10-PCS; 2018-01-30 08:46)
PROC: 0DNU4ZZ Release Omentum, Percutaneous Endoscopic Approach (ICD-10-PCS; 2018-01-30 08:46)
PROC: 0FN04ZZ Release Liver, Percutaneous Endoscopic Approach (ICD-10-PCS; 2018-01-30 08:46)
DX: A41.9 Sepsis, unspecified organism (principal); K82.2 Perforation of gallbladder; K81.0 Acute cholecystitis; E87.1 Hypo-osmolality and hyponatremia; B37.49 Other urogenital candidiasis; R65.20 Severe sepsis without septic shock; E11.9 Type 2 diabetes mellitus without complications; I10 Essential (primary) hypertension; E78.5 Hyperlipidemia, unspecified; E87.6 Hypokalemia; K66.0 Peritoneal adhesions (postprocedural) (postinfection); N40.1 Benign prostatic hyperplasia with lower urinary tract symptoms; R33.8 Other retention of urine; R06.81 Apnea, not elsewhere classified
CPT/HCPCS: 36600; 71045; 74177; 74181; 76705; 80053; 80061; 80162; 81001; 82803; 82962; 83036; 83690; 83735; 84100; 84153; 84154; 84439; 84443; 85025; 85610; 85730; 86704; 86709; 86803; 87081; 87086; 87340; 93005; 93306

== ENCOUNTER 2018-02-19 13:29 | Emergency (ER) | payer SELFPAY, OTHER | END 2018-02-19 14:00 | disposition left against medical advice (07) | LOC: E/R 13:29 | DX: Z53.21 Procedure and treatment not carried out due to patient leaving prior to being seen by health care provider (principal) ==

== ENCOUNTER 2018-02-19 17:39 | Observation (INO) | payer OTHER ==
[2018-02-19] MEDS: SOD CHLORIDE 0.9% 100 ML (22:42)
[2018-02-19] MEDS: IOHEXOL 300MG/ML 150 ML BTL (22:42)
[2018-02-19 22:59] LABS: ADD MAN DIFF? NO
[2018-02-19 23:04] LABS: BASOPHILS % 0.3 % (0.0-2.0); EOSINOPHILS % 0.2 % (0.0-7.0); HEMOGLOBIN 13.4 g/dl (14.0-18.0); LYMPHOCYTES # 1.1 10^3/ul (0.8-2.9); LYMPHOCYTES % 8.8 % (15.0-51.0); MEAN CORPUSCULAR HEMOGLOBIN 29.4 pg (29.0-33.0); MEAN CORPUSCULAR HGB CONC 34.4 g/dl (32.0-37.0); MEAN CORPUSCULAR VOLUME 85.5 fl (82.0-101.0); MEAN PLATELET VOLUME 11.8 fl (7.4-10.4); MONOCYTE # 1.5 10^3/ul (0.3-0.9); MONOCYTES % 11.7 % (0.0-11.0); NEUTROPHIL # 9.9 10^3/ul (1.6-7.5); NEUTROPHILS % 78.4 % (39.0-77.0); PLATELET COUNT 181 10^3/UL (140-415); RED BLOOD COUNT 4.56 10^6/ul (4.70-6.10)
[2018-02-19 23:04] LABS: WHITE BLOOD COUNT 12.7 10^3/ul (4.8-10.8)
[2018-02-19] MEDS: SOD CHLORIDE 0.9% 1,000 ML IV (23:14)
[2018-02-19 23:23] LABS: ALANINE AMINOTRANSFERASE 26 IU/L (13-69); ALBUMIN 3.7 g/dl (3.3-4.9); ALBUMIN/GLOBULIN RATIO 1.02; ALKALINE PHOSPHATASE 159 IU/L (42-121); ANION GAP 16 (8-16); ASPARTATE AMINO TRANSFERASE 30 IU/L (15-46); BILIRUBIN,INDIRECT 0.5 mg/dl (0-1.1); BILIRUBIN,TOTAL 0.5 mg/dl (0.2-1.3); BLOOD UREA NITROGEN 15 mg/dl (7-20); CALCIUM 9.2 mg/dl (8.4-10.2); CARBON DIOXIDE 27 mmol/L (21-31); CHLORIDE 92 mmol/L (97-110); CREATININE 0.58 mg/dl (0.61-1.24); LIPASE 161 U/L (23-300); POTASSIUM 4.6 mmol/L (3.5-5.1); SODIUM 130 mmol/L (135-144); TOTAL PROTEIN 7.3 g/dl (6.1-8.1)
[2018-02-19 23:28] LABS: GLUCOSE 413 mg/dl (70-220)
[2018-02-20 00:41] LABS: ADD UMIC YES; UR ASCORBIC ACID NEGATIVE (NEGATIVE); UR BACTERIA MODERATE /HPF (NONE SEEN); UR BILIRUBIN (Dip) NEGATIVE (NEGATIVE); UR BLOOD (Dip) 2+ mg/dL (NEGATIVE); UR CLARITY SLIGHTLY CLOUDY (CLEAR); UR COLOR YELLOW (YELLOW); UR GLUCOSE (Dip) 3+ mg/dL (NEGATIVE); UR KETONES (Dip) NEGATIVE (NEGATIVE); UR LEUKOCYTE ESTERASE (Dip) NEGATIVE Leu/ul (NEGATIVE); UR NITRITE (Dip) NEGATIVE (NEGATIVE); UR RBC 5 /HPF (0-5); UR SPECIFIC GRAVITY (Dip) 1.033 (1.003-1.030); UR TOTAL PROTEIN (Dip) NEGATIVE (NEGATIVE); UR UROBILINOGEN (Dip) NEGATIVE (NEGATIVE); UR WBC 22 /HPF (0-5)
[2018-02-20] MEDS: ONDANSETRON 4 MG INJ IV ×3 (05:30→17:46)
[2018-02-20] MEDS: ACCU-CHEK XX ×5 (05:30→21:45)
[2018-02-20] MEDS: DEXTROSE 5%-0.45% NACL 1,000 ML IV ×3 (05:31→15:00)
[2018-02-20] MEDS ORDERED: GLUCOSE GEL 15 GRAM TUBE BUCCAL (06:00)
[2018-02-20] MEDS ORDERED: GLUCOSE GEL 15 GRAM TUBE PO ×2 (06:00)
[2018-02-20] MEDS ORDERED: GLUCAGON 1 MG INJ IM (06:00)
[2018-02-20] MEDS ORDERED: DEXTROSE 50% 50 ML SYRINGE IV ×2 (06:00)
[2018-02-20] MEDS: INSULIN ASPART [NOVOLOG] 3 ML PEN SC ×6 (06:04→21:42)
[2018-02-20 07:04] LABS: ADD MAN DIFF? NO
[2018-02-20 07:15] LABS: BASOPHILS % 0.3 % (0.0-2.0); EOSINOPHILS # 0.1 10^3/ul (0.0-0.5); EOSINOPHILS % 0.5 % (0.0-7.0); HEMATOCRIT 39.3 % (42.0-52.0); HEMOGLOBIN 12.9 g/dl (14.0-18.0); LYMPHOCYTES # 1.4 10^3/ul (0.8-2.9); LYMPHOCYTES % 10.9 % (15.0-51.0); MEAN CORPUSCULAR HEMOGLOBIN 28.2 pg (29.0-33.0); MEAN CORPUSCULAR HGB CONC 32.8 g/dl (32.0-37.0); MEAN CORPUSCULAR VOLUME 85.8 fl (82.0-101.0); MEAN PLATELET VOLUME 11.8 fl (7.4-10.4); MONOCYTE # 1.5 10^3/ul (0.3-0.9); MONOCYTES % 11.5 % (0.0-11.0); NEUTROPHIL # 9.6 10^3/ul (1.6-7.5); NEUTROPHILS % 76.1 % (39.0-77.0); PLATELET COUNT 190 10^3/UL (140-415); RED BLOOD COUNT 4.58 10^6/ul (4.70-6.10); RED CELL DISTRIBUTION WIDTH 13.3 % (11.5-14.5)
[2018-02-20 07:15] LABS: WHITE BLOOD COUNT 12.6 10^3/ul (4.8-10.8)
[2018-02-20 07:21] LABS: ALANINE AMINOTRANSFERASE 24 IU/L (13-69); ALBUMIN 3.5 g/dl (3.3-4.9); ALKALINE PHOSPHATASE 128 IU/L (42-121); ANION GAP 13 (8-16); ASPARTATE AMINO TRANSFERASE 23 IU/L (15-46); BILIRUBIN,INDIRECT 0.4 mg/dl (0-1.1); BILIRUBIN,TOTAL 0.4 mg/dl (0.2-1.3); BLOOD UREA NITROGEN 10 mg/dl (7-20); CALCIUM 8.7 mg/dl (8.4-10.2); CARBON DIOXIDE 28 mmol/L (21-31); CHLORIDE 96 mmol/L (97-110); CREATININE 0.51 mg/dl (0.61-1.24); GLUCOSE 339 mg/dl (70-220); SODIUM 133 mmol/L (135-144)
[2018-02-20] MEDS: BISACODYL 10 MG SUPP PR (08:19)
[2018-02-20] MEDS: INSULIN GLARGINE [LANTus] (100 UNITS/ML) SYG SC ×2 (08:22→23:15)
[2018-02-20] MEDS: CIPROFLOXACIN 400MG/D5W 200 ML IVPB ×2 (09:34→20:28)
[2018-02-20] MEDS: METOCLOPRAMIDE 10 MG INJ IV (21:23)
[2018-02-20] MEDS: TAMSULOSIN (SR) 0.4 MG CAP PO (21:39)
[2018-02-20] MEDS ORDERED: ONDANSETRON 4 MG INJ IV (23:00)
[2018-02-21] MEDS: ONDANSETRON INJ 8 MG in SOD CHLORIDE 0.9% 50 ML IV ×2 (00:44→06:02)
[2018-02-21] MEDS: DEXTROSE 5%-0.45% NACL 1,000 ML IV (00:51)
[2018-02-21] MEDS: INSULIN ASPART [NOVOLOG] 3 ML PEN SC ×8 (00:51→13:20)
[2018-02-21] MEDS: ACCU-CHEK XX ×4 (00:52→09:00)
[2018-02-21] MEDS ORDERED: METOCLOPRAMIDE 10 MG INJ IV (01:30)
[2018-02-21 05:46] LABS: ADD MAN DIFF? NO
[2018-02-21 06:01] LABS: BASOPHILS % 0.4 % (0.0-2.0); EOSINOPHILS # 0.2 10^3/ul (0.0-0.5); EOSINOPHILS % 1.4 % (0.0-7.0); HEMATOCRIT 34.5 % (42.0-52.0); HEMOGLOBIN 11.6 g/dl (14.0-18.0); LYMPHOCYTES # 1.6 10^3/ul (0.8-2.9); LYMPHOCYTES % 14.9 % (15.0-51.0); MEAN CORPUSCULAR HEMOGLOBIN 28.6 pg (29.0-33.0); MEAN CORPUSCULAR HGB CONC 33.6 g/dl (32.0-37.0); MEAN PLATELET VOLUME 12.2 fl (7.4-10.4); MONOCYTE # 1.1 10^3/ul (0.3-0.9); MONOCYTES % 10.6 % (0.0-11.0); NEUTROPHIL # 7.8 10^3/ul (1.6-7.5); PLATELET COUNT 189 10^3/UL (140-415); RED BLOOD COUNT 4.06 10^6/ul (4.70-6.10); RED CELL DISTRIBUTION WIDTH 13.2 % (11.5-14.5)
[2018-02-21 06:01] LABS: WHITE BLOOD COUNT 10.8 10^3/ul (4.8-10.8)
[2018-02-21 06:24] LABS: ANION GAP 11 (8-16); BLOOD UREA NITROGEN 7 mg/dl (7-20); CALCIUM 8.6 mg/dl (8.4-10.2); CARBON DIOXIDE 29 mmol/L (21-31); CHLORIDE 100 mmol/L (97-110); CREATININE 0.61 mg/dl (0.61-1.24); GLUCOSE 189 mg/dl (70-220); MAGNESIUM 1.8 mg/dl (1.7-2.5); PHOSPHORUS 4.5 mg/dl (2.5-4.9); POTASSIUM 3.7 mmol/L (3.5-5.1); SODIUM 136 mmol/L (135-144)
[2018-02-21 07:51] LABS: HEMOGLOBIN A1C 9.6 % (0-5.9)
[2018-02-21] MEDS: TAMSULOSIN (SR) 0.4 MG CAP PO (08:35)
[2018-02-21] MEDS: INSULIN GLARGINE [LANTus] (100 UNITS/ML) SYG SC (08:44)
[2018-02-21] MEDS: CIPROFLOXACIN 400MG/D5W 200 ML IVPB (08:46)
== END 2018-02-21 17:01 | disposition home or self-care (01) ==
LOC: E/R 17:39 → MS1 02-20 03:22
DX: N39.0 Urinary tract infection, site not specified (principal); E11.9 Type 2 diabetes mellitus without complications; R11.2 Nausea with vomiting, unspecified; R06.6 Hiccough; N40.0 Benign prostatic hyperplasia without lower urinary tract symptoms; Z88.0 Allergy status to penicillin; Z90.49 Acquired absence of other specified parts of digestive tract; Z87.891 Personal history of nicotine dependence
CPT/HCPCS: 36415; 74177; 80048; 80053; 81001; 82962; 83036; 83690; 83735; 84100; 85025; 87086; 99285-25

== ENCOUNTER 2018-11-21 08:14 | Emergency (ER) | payer OTHER ==
[2018-11-21 09:18] LABS: URINE BLOOD (Dip) POC 2+ (NEGATIVE); URINE KETONES (Dip) POC Negative (NEGATIVE); URINE LEUKOCYTE EST (Dip) POC Trace (NEGATIVE); URINE NITRITE (Dip) POC Negative (NEGATIVE); URINE TOTAL PROTEIN POC Trace (NEGATIVE)
== END 2018-11-21 09:48 | disposition home or self-care (01) ==
LOC: FTE 08:14
DX: R33.9 Retention of urine, unspecified (principal); Z79.84 Long term (current) use of oral hypoglycemic drugs
CPT/HCPCS: 51702; 81003; 87086; 99283-25

== ENCOUNTER 2018-11-27 11:51 | Emergency (ER) | payer OTHER | END 2018-11-27 14:49 | disposition home or self-care (01) | LOC: FTE 11:51 | DX: Z46.6 Encounter for fitting and adjustment of urinary device (principal); I10 Essential (primary) hypertension; E11.9 Type 2 diabetes mellitus without complications; Z79.84 Long term (current) use of oral hypoglycemic drugs | CPT/HCPCS: 99283 ==